=== PATIENT | female | born 1960 | race Caucasian/White ===

== ENCOUNTER 2016-04-13 12:04 | Emergency (ER) | payer OTHER ==
[~2016-04-13] VITALS: Ht 177.8 cm; Wt 87.7 kg
[~2016-04-13 12:04] MED LIST: CALCIUM MAG PO; DESI25TA13 PO; FERR240T5 PO; FLUT16SP NS; FOLI1TAB18 PO; GABA-502 PO; HYDR-4003 PO; IBUP200C PO; LORA0.5T PO; MEPE100T17 PO; MULT-1018 PO; OMEP20CA11 PO; TAMO20TA4 PO; [UNRECOGNIZED DRUG - OTHER] PO; [UNRECOGNIZED DRUG - OTHER] PO; vit d 3 PO; vitamin b6 PO
[2016-04-13 12:08] VITALS: BP 119/86; PULSE 94; RESP 22; O2SAT 100
--- NOTE | 2016-04-13 12:36 | ED.REPORT ---
HPI-General Illness Date of Service Apr 13, 2016 ED Provider: Jhon Park DO The patient is a 55 year old female with history of metastatic breast cancer who presents to the emergency department complaining of shortness of breath that she first noticed last night while making dinner. She states she is becoming short of breath with activities that she is normally able to do. This morning she felt short of breath and lightheaded after standing from doing laundry. She is currently getting chemotherapy treatments and believes these symptoms may be related to that. She denies chest pain, chest pressure, lower extremity swelling, fever, chills, cough, abdominal pain, nausea, vomiting or diarrhea. Nursing Notes Stated Complaint: SHORTNESS OF BREATH Chief Complaint: Respiratory Distress Nursing Notes Reviewed: Yes Allergies: Coded Allergies: amoxicillin (Verified Allergy, Severe, HIVES (AUGMENTIN), 05/26/15) clavulanic acid (Verified Allergy, Severe, HIVES (AUGMENTIN), 05/26/15) Scheduled ([vit d 3]) 1,000 MG PO DAILY ([vitamin b6]) PO DAILY Desipramine (Desipramine) 25 Mg Tablet 25 MG PO HS Ferrous Gluconate (Ferrous Gluconate) 240 Mg Tablet 240 MG PO DAILY Folic Acid (Folic Acid) 1 Mg Tablet 1 MG PO DAILY Gabapentin (Gabapentin) 300 Mg Capsule 300 MG PO BID Multivitamin (Multi Vitamin Daily) 1 Each Tablet 1 EACH PO DAILY Omeprazole (Omeprazole) 20 Mg Capsule.dr 20 MG PO DAILY Tamoxifen Citrate (Tamoxifen Citrate) 20 Mg Tablet 20 MG PO DAILY Scheduled PRN Fluticasone Propionate (Fluticasone Propionate Nasal) 16 Gm [place].susp 2 SPRAY NS BID PRN PRN seasonal allergies Hydrocodone-Acetaminophen 5-325 mg (Hydrocodone-Acetaminophen 5-325 mg) 1 Each Tablet 1 TABLET PO [id number] PRN PRN For Pain Ibuprofen (Ibuprofen) 200 Mg Capsule 600 MG PO QID PRN PRN For Pain Lorazepam (Lorazepam) 0.5 Mg Tablet 0.5 MG PO TID PRN PRN For Insomnia Meperidine (Demerol) 100 Mg Tablet 50 MG PO Q4H PRN PRN Pain Miscellaneous Medications ([Liquid Calcium Mag]) PO ([Glutagenics]) PO ([Acerola Vitamin C]) PO General Time Seen by MD: 12:33 Chief Complaint Other (shortness of breath) Hx Obtained From: Patient Arrived By: Walk-in Sudden in Onset?: Yes Onset Occurred: Yesterday Symptom Duration: Since onset Severity: Current: No pain currently Severity: Maximum: No pain Recent Healthcare: No recent hospitalization, Recent doctor visit Similar Sx Previous: No PERC Rule Age 50 or over One or more crit "Yes" Well's Criteria for PE Cancer Tx past 6mo (1) Well's PE Score: 0-2 pts (low risk 3.6%) Past Medical History Past Medical History Notes: Oncologist: Dr. Galvez Past Medical History Metastatic breast cancer Past Surgical History Lumpectomy Left thumb surgery Family History Noncontributory Smoking History Never Smoker Social History Alcohol Use: Denies alcohol use Drug Use: Denies drug use Other Social History: Good social support, Lives with children, Local resident Ambulatory Status Independent Review of Systems Full Review of Systems Constitutional: Denies: Chills, Fever Respiratory: Reports: Dyspnea on exertion, Shortness of breath Cardiovascular: Denies: Chest pain GI: Denies: Abdominal pain, Diarrhea, Nausea, Vomiting Musculoskeletal: Denies: Extremity swelling Neurologic: Reports: Lightheaded Complete sys rev & neg: except as marked. Physical Exam Vital Signs Vital Signs Date Time Temp Pulse Resp B/P Pulse Ox O2 Delivery O2 Flow Rate FiO2 04/13/16 14:53 69 15 123/78 100 Room Air 04/13/16 13:37 66 10 115/78 100 Room Air 04/13/16 12:08 36.8 94 22 119/86 100 Room Air Initial VS: Reviewed Head / Eyes: Atraumatic, Normocephalic, PERRL ENT: Mucous membranes moist, Conjunctiva normal, No scleral icterus Abdomen / GI: Soft, Non-tender, No guarding, No rebound, No distention Lymphatic: No lymphadenopathy Extremities: Vascular intact, Neuro intact, No swelling, No tenderness Skin: Warm, Dry, No cyanosis Neurologic: Alert, Oriented, Nonfocal Psychiatric: Mood/affect normal, Behavior normal, Normal thought content General/Constitutional: Awake, Alert, Cooperative laughing and joking Neck: Atraumatic, Supple, Full range of motion, No adenopathy, No swelling, Non -tender, No JVD Respiratory / Chest: Atraumatic, Breath sounds NL, Breath sounds = bilat, No respiratory distress, No rales, No rhonchi, No wheezing, No retractions, No stridor, No chest tenderness, No chest wall deformity Cardiovascular: Heart rate NL, Regular rhythm, Heart sounds NL, No gallop, No murmurs, No rubs, Cap refill not delayed, Peripheral circulation NL, Pulses = bilaterally Lower Extremity / Pelvis / MS: No ligamentous injury, Tendon function NL, No edema, Gait NL Interpretation & Diagnostics Lab Results Interpretation Result Diagram: 04/13/16 1300 04/13/16 1300 Test 04/13/16 13:00 04/13/16 13:30 White Blood Count 4.7th/mm3 (3.8-10.1) Red Blood Count 4.57mil/mm3 (3.90-5.20) Hemoglobin 13.9g/dL (12.0-15.6) Hematocrit 41.2% (35.0-46.0) Mean Corpuscular Volume 90.2fL (81-100) Mean Corpuscular Hemoglobin 30.4pg (27.0-35.0) Mean Corpuscular Hemoglobin Concent 33.7% (32.0-37.0) Red Cell Distribution Width 13.6% (12.3-15.4) Platelet Count 143bil/L (150-400) Neutrophils (%) (Auto) 75.7% (40-74) Lymphocytes (%) (Auto) 11.8% (14-46) Monocytes (%) (Auto) 10.4% (4-12) Eosinophils (%) (Auto) 1.7% (0-5) Basophils (%) (Auto) 0.2% (0-3) Prothrombin Time 11.0sec (8.1-12.5) Prothromb Time International Ratio 1.03ratio Activated Partial Thromboplast Time 28.5sec (22.8-33.0) Sodium Level 137mEq/L (134-144) Potassium Level 4.3mEq/L (3.5-5.2) Chloride Level 102mEq/L (97-108) Carbon Dioxide Level 22mmol/L (18-29) Blood Urea Nitrogen 10mg/dL (6-24) Creatinine 0.55mg/dL (0.57-1.00) Estimat Glomerular Filtration Rate 165mL/min (>59) Glucose Level 86mg/dL (60-99) Calcium Level 8.9mg/dL (8.5-10.1) Magnesium Level 2.2mg/dL (1.6-2.6) Total Bilirubin 0.3mg/dL (0.0-1.2) Aspartate Amino Transf (AST/SGOT) 32U/L (0-50) Alanine Aminotransferase (ALT/SGPT) 23U/L (0-32) Alkaline Phosphatase 80U/L (25-150) Troponin T < 0.010ug/L (0.0-0.011) Pro-B-Type Natriuretic Peptide 28.25pg/mL (0-249) Total Protein 6.9g/dL (6.4-8.4) Albumin 4.2g/dL (3.4-5.0) Hold [place] Top Tube Received (Received) Hold Urine Received (Received) ECG Interpretation ECG Interpretation: Sinus rhythm with a rate of [address] changes Time: 13:23 Interpreted by: ED physician Re-Eval/Medical Decision Med Decision/Clinical Course Periodic dyspnea at home without recurrence in the ER, workup unremarkable. Patient is recommended to take baby aspirin daily return for persistent symptoms and follow-up with PCP and cardiology in the next few days as an outpatient. Source of Hx: Old records Time of Eval: 12:46 Re-Evaluation/Progress Note: Discussed plan for blood work and chest CT. Re-Evaluation/Progress Note: Rechecked the patient. Discussed CT results, diagnosis, and plan for discharged. Consultation : Referral / Consult Name: Aleksandr Galvez MD Consulted With: Oyster Preparer Call Returned at: 12:43 Medication Care Manager: Will see in office, Agrees with eval, Agrees with plan Counseled Regarding: Diagnosis, Lab results, Need for follow-up, When/why to return to ED Discharge & Departure Primary Impression: Shortness of breath Additional Impression: Metastatic breast cancer Disposition: Home Discharge Condition All VS Reviewed: Yes Condition: Stable Additional Instructions: Thank you for entrusting us with your care today. I hope that you continue to feel better. Your labs and chest CT today are reassuring. There is no evidence of a blood clot, pneumonia, or heart attack. Call Dr. Roberson's office on Friday to schedule a followup appointment. Begin taking 81 mg aspirin daily. Please return to the emergency department if you develop shortness of breath lasting for more than 15 minutes, chest pain, fever ,vomiting, or any other new or concerning symptoms. Referrals: Sunita Abarca (PCP) Aleksandr Galvez MD Attestation Portions of this note were transcribed by Paige Castro. I, Dr. Park personally performed the history, physical exam and medical decision-making; I reviewed and confirmed the accuracy of the information in the transcribed note. Signed by: Van Griffith, 04/12/2016 at 1515. copies to: Sunita Abarca; Aleksandr Galvez MD, Timothy S DO Apr 13, 2016 12:36 Paige Castro Apr 13, 2016 12:46
[2016-04-13] MEDS ORDERED: Ondansetron 2 mg/mL 2 mL Inj IVPUSH ONE (12:50)
[2016-04-13 13:16] LABS: BASOPHILS % (AUTO) 0.2 % (0-3); EOSINOPHILS % (AUTO) 1.7 % (0-5); MONOCYTES % (AUTO) 10.4 % (4-12); Mean Corpuscular Hemoglobin 30.4 pg (27.0-35.0); Mean Corpuscular Volume 90.2 fL (81-100); NEUTROPHILS % (AUTO) 75.7 % (40-74); Platelet Count 143 bil/L (150-400)
[2016-04-13 13:31] LABS: INR 1.03 ratio
[2016-04-13 13:37] VITALS: BP 115/78; PULSE 66; RESP 10; O2SAT 100
[2016-04-13 13:55] LABS: Magnesium 2.2 mg/dL (1.6-2.6)
[2016-04-13 14:03] LABS: TROPONIN T < 0.010 ug/L (0.0-0.011)
[2016-04-13 14:53] VITALS: BP 123/78; PULSE 69; RESP 15; O2SAT 100
--- NOTE | 2016-04-13 15:28 | DRSVH ---
PROCEDURE: CT ANGIO CHEST PULMONARY EMBOLISM ([id number]) INDICATIONS: dyspnea, active cancer TECHNIQUE: After the administration of intravenous contrast, 2 mm thick sections acquired from the pulmonary api kalani to the posterior costophrenic angles. 3-dimensional maximum intensity projection (MIP) coronal a nd sagittal reformats were then acquired through the thorax. For radiation dose reduction, the follo wing was used: automated exposure control, adjustment of mA and/or kV according to patient size. COMPARISON: None. FINDINGS: Image quality: Excellent. Pulmonary arteries: Pulmonary arteries are normal in size, and demonstrate no intraluminal filling d efects to suggest central pulmonary embolism. Lungs and pleura: Lungs are clear. No pleural effusions or pneumothorax. Central and peripheral ai rways are patent. Mediastinum: Heart size is normal, without pericardial effusion. No mediastinal or hilar adenopathy . Thoracic aorta is normal in caliber and enhancement. Esophagus is normal in caliber, without hiat al hernia. Bones and chest wall: Surgical clips noted in the right breast and right axilla. No suspicious bony lesions. Ribs and thoracic spine appear intact throughout. Thyroid gland is within normal limits. No axillary or supraclavicular adenopathy. Abdomen: Visualized upper abdominal solid organs appear normal in the early arterial phase of enhanc ement. IMPRESSION: No pulmonary embolus. Dictated by: Zulma Floyd MD, PhD on 04/13/2016 at 15:21 Approved by: Zulma Floyd MD, PhD on 04/13/2016 at 15:26
[2016-04-13 15:51] VITALS: BP 120/88; PULSE 70; RESP 16; O2SAT 97
[2016-04-23] MEDS ORDERED: PALB125C PO (15:26)
[2016-07-29] MEDS ORDERED: ZINC PO (10:54)
[2016-07-29] MEDS ORDERED: MAGNESIUM PO (10:54)
[2016-08-26] MEDS ORDERED: calcium PO (10:39)
[2016-08-26] MEDS ORDERED: [UNRECOGNIZED DRUG - OTHER] PO (10:39)
[2016-08-26] MEDS ORDERED: cortisol manager PO (10:39)
== END 2016-04-13 15:52 | disposition home or self-care (01) ==
LOC: SED 12:04
DX: R06.02 Shortness of breath (principal); C50.919 Malignant neoplasm of unspecified site of unspecified female breast; R42 Dizziness and giddiness; Z92.21 Personal history of antineoplastic chemotherapy; Z88.1 Allergy status to other antibiotic agents; Z88.8 Allergy status to other drugs, medicaments and biological substances
CPT/HCPCS: 36415; 71275; 80053; 83735; 83880; 84484; 85025; 85610; 85730; 93005; 99285; Q9967